=== PATIENT | female | born 1960 | race Caucasian/White ===

== ENCOUNTER 2018-06-07 16:21 | Emergency (ER) | payer BC ==
[2018-06-07 16:43] VITALS: BP 118/70; PULSE 84; TEMP 97.7; BMI 25.4
--- NOTE | 2018-06-07 16:49 | PDOC ---
History of Present Illness - General History Source: Patient Exam Limitations: No Limitations - History of Present Illness Initial Comments: 06/07/18 16:55 The patient is a 57 year old female with no significant PMH who presents to the emergency department with diffuse welts and itchiness for the past 4 days. Patient states that she was in [place] when she noticed the onset of these welts. Patient had her room changed after she initially noticed them, but continued to notice more groups of welts appearing all over. Patient was seen by a doctor in [facility] who gave her hydrocortisone cream and kalitron 8 with minimal relief of her itchiness. Patient was concerned about bed bugs and has washed her clothing as well. The patient denies chest pain, shortness of breath, headache and dizziness. Denies fever, chills, nausea, vomit, diarrhea and constipation. Denies dysuria, frequency, urgency and hematuria. Allergies: NKA Past surgical history: None reported. Social history: No reported alcohol, drug or cigarette use. PCP: Dr. 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) Disorders: No HTN: No Hypercholesterolemia: No Liver Disease: No Seizures: No Thyroid Disease: No - Surgical History Abdominal Surgery: Yes Appendectomy: Yes Cardiac Surgery: No Cholecystectomy: No Lung Surgery: No Neurologic Surgery: No Orthopedic Surgery: No - Immunization History Td Vaccination: No (UNKNOWN) - Suicide/Smoking/Psychosocial Hx Smoking Status: Yes Smoking History: Never smoked Have you smoked in the past 12 months: No Number of Cigarettes Smoked Daily: 0 If you are a former smoker, when did you quit?: 1 YEAR Hx Alcohol Use: No Drug/Substance Use Hx: No Substance Use Type: Alcohol Hx Substance Use Treatment: No <Darrel Willson - Last Filed: 06/07/18 17:41> - Past Medical History Allergies/Adverse Reactions: Allergies Allergy/AdvReac Type Severity Reaction Status Date / Time Sulfa (Sulfonamide Allergy Intermediate Hives Verified 06/07/18 16:24 Antibiotics) Home Medications: Ambulatory Orders Bupropion HCl [Wellbutrin -] 100 mg PO DAILY 02/02/15 Multivitamins [Multivit ([facility] Formul[facility])] 1 tab PO DAILY 02/02/15 Norethindrone AC-Eth Estradiol [Loestrin 21 1-20 Tablet] 1 each PO DAILY Hydroxyzine HCl 50 mg PO QID PRN #20 tablet 06/07/18 Triamcinolone 0.1% Ointment [Aristocort 0.1% Ointment -] 1 applic TP TID PRN # 60 grams 06/07/18 Review of Systems - Review of Systems Able to Perform ROS?: Yes Comments:: 06/07/18 16:56 REVIEW OF SYSTEMS: GENERAL/CONSTITUTIONAL: No fever or chills. No weakness. No weight change. HEAD, EYES, EARS, NOSE AND THROAT: No change in vision. No ear pain or discharge. No sore throat. CARDIOVASCULAR: No chest pain or shortness of breath. RESPIRATORY: No cough, wheezing, or hemoptysis. GASTROINTESTINAL: No nausea and vomiting. No diarrhea. No prior abdominal surgery. GENITOURINARY: No dysuria, frequency, or change in urination. MUSCULOSKELETAL: No joint or muscle swelling or pain. No neck or back pain. SKIN AND BREASTS: No easy bruising. (+) welts NEUROLOGIC: No headache, vertigo, loss of consciousness, or loss of sensation. PSYCHIATRIC: No depression or anxiety. ENDOCRINE: No increased thirst. No abnormal weight change. HEMATOLOGIC/LYMPHATIC: No anemia, easy bleeding, or history of blood clots. ALLERGIC/IMMUNOLOGIC: No hives or skin allergy. No latex allergy. <Janeth Tejeda - Last Filed: 06/07/18 16:55> *Physical Exam - Vital Signs Last Vital Signs Temp Pulse Resp BP Pulse Ox 97.7 F 84 16 118/70 98 06/07/18 16:22 06/07/18 16:22 06/07/18 16:22 06/07/18 16:22 06/07/18 16:22 <Janeth Tejeda - Last Filed: 06/07/18 16:55> - Vital Signs Last Vital Signs Temp Pulse Resp BP Pulse Ox 97.7 F 84 16 118/70 98 06/07/18 16:22 06/07/18 16:22 06/07/18 16:22 06/07/18 16:22 06/07/18 16:22 - Physical Exam Comments: 06/07/18 17:33 GENERAL: The patient is awake, alert, and fully oriented, in no acute distress. She is scratching a bit at her rash. HEAD: Normal with no signs of trauma. EYES: Pupils equal, round and reactive to light, extraocular movements intact, sclera anicteric, conjunctiva clear. ENT: Ears normal, nares patent, oropharynx clear without exudates. Moist mucous membranes. NECK: Normal range of motion, supple without lymphadenopathy, JVD, or masses. LUNGS: Breath sounds equal, clear to auscultation bilaterally. No wheezes, and no crackles. HEART: Regular rate and rhythm, normal S1 and S2 without murmur, rub or gallop. ABDOMEN: Soft, nontender, normoactive bowel sounds. No guarding, no rebound. No masses. EXTREMITIES: Normal range of motion, no edema. No clubbing or cyanosis. No cords, erythema, or tenderness. NEUROLOGICAL: Cranial nerves II through XII grossly intact. Normal speech, normal gait. PSYCH: Normal mood, normal affect. SKIN: There are diffuse bite greene on the face, trunk, arms, abdomen, and legs. The bite greene are raised welts with central bite greene. They're in groups of 2 and 3 or 4. They are not symmetric. <Darrel Willson - Last Filed: 06/07/18 17:41> ED Treatment Course - LABORATORY CBC & Chemistry Diagram: 06/07/18 16:55 <Darrel Willson - Last Filed: 06/07/18 17:41> Medical Decision Making - Medical Decision Making 06/07/18 17:34 57-year-old female comes back from [facility] with a rash. There is no fever. The welts are bite greene in groupings. The rash appears consistent on examination with bedbugs. Patient will be treated with a one time injection of methylprednisolone 40 mg for her severe welts and itching. She will then be prescribed Aristocort 0.1% ointment along with hydroxyzine antihistamine. She has been advised to follow up with her primary physician this coming week if the rash has not resolved. <Darrel Willson - Last Filed: 06/07/18 17:41> *DC/Admit/Observation/Transfer - Attestations Scribe Attestion: 06/07/18 16:57 Documentation prepared by Janeth Tejeda, acting as medical information specialist for Darrel Willson MD <Janeth Tejeda - Last Filed: 06/07/18 16:55> - Discharge Dispostion Decision to Admit order: No <Darrel Willson - Last Filed: 06/07/18 17:41> Diagnosis at time of Disposition: Bed bug bite Qualifiers: Encounter type: initial encounter Qualified Code(s): W57.XXXA - Bitten or stung by nonvenomous insect and other nonvenomous arthropods, initial encounter - Discharge Dispostion Disposition: HOME Condition at time of disposition: Stable - Prescriptions Prescriptions: Hydroxyzine HCl 50 mg PO QID PRN #20 tablet PRN Reason: itching and redness Triamcinolone 0.1% Ointment [Aristocort 0.1% Ointment -] 1 applic TP TID PRN # 60 grams PRN Reason: itching and red rash - Referrals Referrals: Kalyn Matias MD [Primary Care Provider] - - Patient Instructions Printed Discharge Instructions: How to Get Rid of Bed Bugs Additional Instructions: Today, you were evaluated for rash. The raised bite greene in groupings suggest bedbugs or some similar type of insect bites. You have been treated with a steroid injection, methylprednisolone 40 mg by injection. Normally this will help the rash within 24 hours. You were also treated with hydroxyzine 50 mg, an antihistamine to relieve redness, swelling and itching. Finally, prescriptions for hydroxyzine and Aristocort steroid ointment had been sent to the [facility] pharmacy electronically. Take the medication as prescribed. Take measures at home to avoid transmission of bedbugs to your home environment. Follow-up with your primary care physician. Return to the emergency department for any severe or progressive symptoms. - Post Discharge Activity
[2018-06-07 17:06] LABS: BASO % 0.7 % (0-2.0); EOS % 4.2 % (0-4.5); HEMATOCRIT 41.5 % (32.4-45.2); HEMOGLOBIN 13.6 GM/dl (10.7-15.3); LYMPH % 41.4 % (8-40); MCH 30.7 pg (25.7-33.7); MCHC 32.8 g/dl (32.0-36.0); MEAN CELL VOLUME 93.7 fl (80-96); MEAN PLT VOLUME 7.9 fl (7.5-11.1); MONO % 7.4 % (3.8-10.2); NEUT % 46.3 % (42.8-82.8); PLATELET COUNT 295 K/MM3 (134-434); RBC 4.43 M/mm3 (3.60-5.2); RDW 12.7 % (11.6-15.6); WHITE BLOOD COUNT 6.1 K/mm3 (4.0-10.8)
[2018-06-07] MEDS ORDERED: methylPREDNISolone ACET (DEPO) 40 MG/1 ML VIAL IM ONE (17:29)
[2018-06-07] MEDS ORDERED: methylPREDNISolone NA SUCC 40 MG/1 ML VIAL ONE (17:47)
[2018-06-08] MEDS ORDERED: methylPREDNISolone NA SUCC 40 MG/1 ML VIAL IM SCH (10:00)
== END 2018-06-07 17:56 | disposition home or self-care (01) ==
LOC: FER 16:21
DX: B88.8 Other specified infestations (principal); W57.XXXA Bitten or stung by nonvenomous insect and other nonvenomous arthropods, initial encounter; Y93.89 Activity, other specified; Y92.89 Other specified places as the place of occurrence of the external cause
CPT/HCPCS: 36415; 85025; 99281-25

== ENCOUNTER 2019-04-27 07:06 | Day surgery (SDC) | payer BC ==
[2019-04-17 15:28] VITALS: BMI 25.3
[2019-04-27] MEDS ORDERED: LIDOCAINE HCL 2% (20ML MULTI-DOSE VIAL) ONE (08:42)
[2019-04-27] MEDS ORDERED: BUPIVACAINE HCL/PF 0.5% (5MG/ML) 10 ML VIAL ONE (08:42)
[2019-04-27] MEDS ORDERED: MIDAZOLAM HCL 2 MG/2 ML SINGLE DOSE VIAL ONE (08:56)
[2019-04-27] MEDS ORDERED: PROPOFOL 20 ML ONE ×3 (09:03)
[2019-04-27] MEDS ORDERED: LIDOCAINE HCL 2% (50ML VIAL) INF ONE (09:13)
[2019-04-27] MEDS ORDERED: BUPIVACAINE HCL/PF 0.5% (5 MG/ML) 30 ML VIAL IJ ONE (09:18)
[2019-04-27] MEDS ORDERED: ACETAMINOPHEN WITH CODEINE 300MG/30MG TABLET PO PRN (10:15)
[2019-04-27 10:29] VITALS: TEMP 97.5
[2019-04-27 11:50] VITALS: BP 110/70; PULSE 65
--- NOTE | 2019-04-27 13:50 | OP ---
DATE OF OPERATION: 04/27/2019 PREOPERATIVE DIAGNOSIS: Hallucis rigidus, right foot. POSTOPERATIVE DIAGNOSIS: Hallucis rigidus, right foot. OPERATIVE PROCEDURE: Cheilectomy, right foot. SURGEON: Charles Valencia DPM INVESTIGATION CLERK: Jorge Barry MD OPERATION IN DETAIL: The patient was taken to the operating room, placed on the operating room table in supine position. The usual aseptic prepping and draping were performed prior to local anesthesia being initiated into the foot with a total of 11 mL of 50/50 mix of 2% plain Xylocaine and 0.5% Marcaine. Once the patient was on the table and the usual aseptic prepping and draping were performed, the right extremity was elevated for a full 3 minutes, and the ankle tourniquet was inflated to 250 mmHg and lowered to the operating table. Draping was then completed. Attention was directed to the 1st metatarsophalangeal joint on the right foot where a 6-cm linear incision was effectively placed medially to the extensor tendon. This was deepened through subcutaneous tissue down to bone. Tendon and all vital structures were identified and retracted. At this point, multiple dorsal and medial and lateral exostosis were noted on the 1st metatarsal head, and the cartilage was noted to be slightly eroded to the 1st metatarsal head upon examination. At this point, utilizing a rongeur and a saw, the exostosis of the dorsum, dorsomedial, dorsolateral portion of the head were removed. A few holes were drilled into the head with a 0.45 K-wire to increase vascularity to the cartilage of the head of the 1st metatarsal. Copious amounts of sterile saline solution were used for a wash of the area. Capsule was closed with No. 2-0 Vicryl, subcutaneous tissue was closed with No. 4-0 Vicryl, and skin was closed with No. 4-0 nylon, and dry sterile dressing was applied to the operative foot. The tourniquet was released, and the capillary filling time was noted to be intact and bandaged. CHARLES VALENCIA DPM [id number]
--- NOTE | 2019-04-29 12:44 | PATH ---
Surgical Pathology Report Patient Name: ARYA CARNES [facility]. Rec. #: [id number] /Age/Gender: 1960 (Age: 58) / F Account: [id number] Location: [facility] AMBUL[facility]ORY Taken: 04/27/2019 Received: 04/27/2019 Reported: 04/29/2019 Physicians: George Kapadia Specimen(s) Received RIGHT FOOT BONE Clinical History Hallux rigidus right foot, cheilectomy Final Diagnosis BONE, RIGHT FOOT, CHEILECTOMY: BONE AND CARTILAGE WITH NO PATHOLOGIC FINDINGS. Electronically Signed Jennifer Brandt M.D. Gross Description Received in formalin labeled "right foot bone," is a 1.4 x 0.9 x 0.2 cm aggregate of cope-yellow bone fragments. The specimen is submitted in toto in one cassette, following decalcification. /04/28/2019 [facility]/04/28/2019
== END 2019-04-27 12:05 | disposition home or self-care (01) ==
LOC: FASU 07:06
PROVIDERS: ATTEND Podiatrist
PROC: 0QBN0ZZ Excision of Right Metatarsal, Open Approach (ICD-10-PCS; principal; 2019-04-27 09:22)
DX: M20.21 Hallux rigidus, right foot (principal)
CPT/HCPCS: 73630-TC-RT-FY; 88304-TC; 88311-TC

== ENCOUNTER 2021-02-13 07:34 | Day surgery (SDC) | payer BC ==
[2021-02-10 16:16] VITALS: BMI 26.9
[2021-02-13 09:02] VITALS: TEMP 96.9
[2021-02-13 09:14] VITALS: BP 120/66; PULSE 69
== END 2021-02-13 09:20 | disposition home or self-care (01) ==
LOC: FASU-ENDO 07:34
PROVIDERS: ATTEND Internal Medicine Gastroenterology
PROC: 0DJD8ZZ Inspection of Lower Intestinal Tract, Via Natural or Artificial Opening Endoscopic (ICD-10-PCS; principal; 2021-02-13 08:27)
DX: Z86.010 Personal history of colon polyps (principal); Z80.0 Family history of malignant neoplasm of digestive organs; Z83.71 Family history of colonic polyps; K57.30 Diverticulosis of large intestine without perforation or abscess without bleeding; K64.1 Second degree hemorrhoids

== ENCOUNTER 2023-09-13 06:02 | Day surgery (SDC) | payer BC ==
[2023-09-09 13:11] VITALS: BMI 26.0
[2023-09-13] MEDS ORDERED: BUPIVACAINE HCL/PF 0.5% (5MG/ML) 10 ML VIAL ONE (07:11)
[2023-09-13] MEDS ORDERED: LIDOCAINE HCL 2% (20ML MULTI-DOSE VIAL) ONE (07:11)
[2023-09-13] MEDS ORDERED: PROPOFOL 20 ML ONE (07:28)
[2023-09-13] MEDS ORDERED: MIDAZOLAM HCL 2 MG/2 ML SINGLE DOSE VIAL ONE (07:28)
[2023-09-13] MEDS ORDERED: DEXAMETHASONE SOD PHOSPHATE 4 MG/1 ML VIAL ONE (07:46)
[2023-09-13] MEDS ORDERED: ceFAZolin SODIUM 1 GM VIAL ONE (07:46)
[2023-09-13] MEDS ORDERED: ONDANSETRON 4 MG/2 ML VIAL ONE (07:46)
[2023-09-13] MEDS ORDERED: KETOROLAC TROMETHAMINE 30 MG/1 ML VIAL ONE (07:54)
[2023-09-13 14:03] VITALS: RESP 16; TEMP 96.8
[2023-09-13 14:23] VITALS: BP 126/69; PULSE 66
== END 2023-09-13 10:10 | disposition home or self-care (01) ==
LOC: FASU 06:02
PROVIDERS: ATTEND Podiatrist
PROC: 0QBP0ZZ Excision of Left Metatarsal, Open Approach (ICD-10-PCS; principal; 2023-09-13 07:54)
DX: M20.22 Hallux rigidus, left foot (principal)
CPT/HCPCS: 73630-TC-LT; 88305-TC; 88311-TC